=== PATIENT | female | born 1955 | race Caucasian/White ===

== ENCOUNTER 2021-01-20 02:12 | Emergency (ER) | payer BC, OTHER ==
[2021-01-20 02:26] VITALS: BP 152/90; PULSE 81
--- NOTE | 2021-01-20 03:05 | EDM.PDOC ---
ED HPI GENERAL MEDICAL PROBLEM - General Chief Complaint: Respiratory Problem Stated Complaint: COVID+/ SOB Time Seen by Provider: 01/20/21 02:24 Source of Information: Reports: Patient History Limitations: Reports: No Limitations - History of Present Illness INITIAL COMMENTS - FREE TEXT/NARRATIVE: Ms. Harrington is a pleasant 65-year-old woman who now presents the ED stating that she developed decreased energy, generalized body aches, including lower back pain, a slight nonproductive cough, nausea without emesis, and slight watery diarrhea 2 days ago, on , 01/18/2021. No recent fever. She then lost her sense of smell yesterday, 01/19/2021, prompting her to go get tested for the SARS-CoV-2 virus, which returned positive. The patient states that she was told at the [facility] that she should come to the ED to get an infusion of monoclonal antibodies. She states that when she woke this morning feeling dyspneic, she decided to come to the ED. She states that she feels better now. She is wondering whether or not she was simply anxious. No recent fever. Here in the ED, the patient's initial BP is found to be modestly elevated at 152/90, otherwise, she is hemodynamically stable, afebrile, saturating 100% on room air. She appears to be comfortable, in no acute distress. The patient reports that she has had dysuria for about a week. Otherwise, prior to , the patient denies having a recent fever, chills, sore throat, ear pain, nasal or sinus congestion, cough, dyspnea, chest pain, palpitations, nausea, vomiting, constipation, diarrhea, abdominal pain, recent weight gain or weight loss, recent bloody bowel movements or black bowel movements, recent joint aches, headaches, or rashes. The patient's PCP is Belinda Calero NP. She has not received a COVID vaccination. - Related Data Allergies Allergy/AdvReac Type Severity Reaction Status Date / Time No Known Allergies Allergy Verified 01/20/21 02:26 Home Meds: Home Meds Levothyroxine 75 mcg PO DAILY 12/16/13 [History] ramipriL [Altace] 10 mg PO DAILY 12/16/13 [History] Cholecalciferol (Vitamin D3) [Vitamin D3] 1,000 unit PO DAILY 01/24/14 [History] Natural Cholesterol Med 1 tab PO DAILY 01/24/14 [History] New Life Formula 1 tab PO DAILY 01/24/14 [History] Acetaminophen/oxyCODONE [Percocet 325-5 MG] 1 each PO Q4HR PRN #30 tab 01/25/14 [Rx] Ibuprofen 600 mg PO Q6HR PRN #30 tablet 01/25/14 [Rx] Metoprolol Succinate [Toprol Xl] 25 mg PO 01/20/21 [History] Omeprazole 20 mg PO 01/20/21 [History] amLODIPine [Norvasc] 01/20/21 [History] atorvaSTATin Calcium [Lipitor] 10 mg PO 01/20/21 [History] nitrofurantoin macrocrystaL [Nitrofurantoin] 1 cap PO Q12H #9 capsule 01/20/21 [Rx] Past Medical History Cardiovascular History: Reports: High Cholesterol, Hypertension Gastrointestinal History: Reports: Diverticulosis (diverticulitis), GERD Endocrine/Metabolic History: Reports: Hypothyroidism, Obesity/BMI 30+ - Past Surgical History HEENT Surgical History: Reports: Oral Surgery (dental extractions) GI Surgical History: Reports: Appendectomy, Cholecystectomy (around 2014), Hernia, Abdominal Female Surgical History: Reports: Hysterectomy (complete), Other (See Below) (Ovarian cystectomy x 2. Bladder suspension.) Oncologic Surgical History: Reports: Biopsy of Breast (right, x 2 -> benign) Social & Family History - Tobacco Use Tobacco Use Status *Q: Current Some Day Tobacco User Packs/Tins Daily Comment: Down from 04/03 ppd Tobacco Use Comment: Started smoking 1972 - Alcohol Use Alcohol Use History: Yes Alcohol Use Frequency: Socially - Recreational Drug Use Recreational Drug Use: No - Living Situation & Occupation Living situation: Reports: , Alone Occupation: Unemployed ED ROS GENERAL - Review of Systems Review Of Systems: Comprehensive ROS is negative, except as noted in HPI. ED EXAM, GENERAL - Physical Exam Exam: See Below Exam Limited By: No Limitations General Appearance: Alert, WD/WN, No Apparent Distress Eye Exam: Bilateral Eye: EOMI, Normal Inspection Ears: Normal External Exam, Hearing Grossly Normal Nose: Normal Inspection Throat/Mouth: Normal Inspection, Normal Lips, Normal Voice, No Airway Compromise Head: Atraumatic, Normocephalic Neck: Normal Inspection, Full Range of Motion Respiratory/Chest: No Respiratory Distress, Lungs Clear, Normal Breath Sounds, No Accessory Muscle Use. No: Decreased Breath Sounds, Crackles, Rhonchi, Wheezing, Stridor, Prolonged Expiration Cardiovascular: Normal Peripheral Pulses, Regular Rate, Rhythm, No Edema, No Gallop, No JVD, No Murmur, No Rub Peripheral Pulses: 3+: Radial (L), Radial (R) GI/Abdominal: Normal Bowel Sounds, Soft, Non-Tender, No Organomegaly, No Distention, No Abnormal Bruit, No Mass Back Exam: Normal Inspection, Full Range of Motion, NT Extremities: Normal Inspection, Normal Range of Motion, No Pedal Edema, Normal Capillary Refill Neurological: Alert, Oriented, Normal Cognition, No Motor/Sensory Deficits Psychiatric: Normal Affect Skin Exam: Warm, Dry, Intact, Normal Color, No Rash Course - Vital Signs Last Recorded V/S: Last Vital Signs Temp 36.1 C 01/20/21 02:23 Pulse 81 01/20/21 02:23 Resp 18 01/20/21 02:23 BP 152/90 H 01/20/21 02:23 Pulse Ox 100 01/20/21 02:23 - Orders/Labs/Meds Orders: Active Orders 24 hr Category Date Time Status Chest 1V Frontal [CR] Stat Exams 01/20/21 03:01 Taken UA W/MICROSCOPIC [URIN] Stat Lab 01/20/21 04:45 Results Labs: Laboratory Tests 01/20/21 01/20/21 01/20/21 Range/Units 03:30 03:30 04:45 WBC 6.44 (3.98-10.04) K/mm3 RBC 4.66 (3.98-5.22) M/mm3 Hgb 14.2 (11.2-15.7) gm/dl Hct 43.4 (34.1-44.9) % MCV 93.1 (79.4-94.8) fl MCH 30.5 (25.6-32.2) pg MCHC 32.7 (32.2-35.5) g/dl RDW Std Deviation 43.9 (36.4-46.3) fL Plt Count 162 L (182-369) K/mm3 MPV 10.9 (9.4-12.3) fl Neutrophils % (Manual) 67 H (40-60) % Band Neutrophils % 0 (0-10) % Lymphocytes % (Manual) 24 (20-40) % Atypical Lymphs % 0 % Monocytes % (Manual) 6 (2-10) % Eosinophils % (Manual) 3 (0.7-5.8) % Basophils % (Manual) 0 L (0.1-1.2) Platelet Estimate Adequate RBC Morph Comment Normal Sodium 139 (136-145) mEq/L Potassium 3.8 (3.5-5.1) mEq/L Chloride 103 (98-107) mEq/L Carbon Dioxide 28 (21-32) mEq/L Anion Gap 11.8 (5-15) BUN 15 (7-18) mg/dL Creatinine 0.8 (0.55-1.02) mg/dL Est Cr Clr Drug Dosing 56.19 mL/min Estimated GFR (MDRD) > 60 (>60) mL/min BUN/Creatinine Ratio 18.8 H (14-18) Glucose 119 H (70-99) mg/dL Calcium 8.3 L (8.5-10.1) mg/dL Total Bilirubin 0.2 (0.2-1.0) mg/dL AST 18 (15-37) U/L ALT 38 (14-59) U/L Alkaline Phosphatase 94 (46-116) U/L C-Reactive Protein 0.4 (<1.0) mg/dL Total Protein 6.7 (6.4-8.2) g/dl Albumin 3.4 (3.4-5.0) g/dl Globulin 3.3 gm/dL Albumin/Globulin Ratio 1.0 (1-2) Urine Color Light yellow (Yellow) Urine Appearance Slt cloudy H (Clear) Urine pH 7.0 (5.0-8.0) Ur Specific [place] 1.020 (1.005-1.030) Urine Protein Negative (Negative) Urine Glucose (UA) Negative (Negative) Urine Ketones Negative (Negative) Urine Occult Blood Trace-intact H (Negative) Urine Nitrite Negative (Negative) Urine Bilirubin Negative (Negative) Urine Urobilinogen 0.2 (0.2-1.0) Ur Leukocyte Esterase 1+ H (Negative) - Re-Assessments/Exams Free Text/Narrative Re-Assessment/Exam: 01/20/21 03:02 I explained to the patient that we have a limited quantity of monoclonal antibodies, therefore we need to limit those to patients that are most likely to do poorly with COVID-19. From my perspective, that is best determined by a CRP; if the patient's CRP is low, then she will likely do well with COVID-19, whereas if her CRP is elevated, while not necessarily due to COVID-19, she is more likely to do poorly, and would therefore derive more benefit from an infusion. I therefore recommended that we check some blood tests, including a CRP, along with a baseline portable chest x-ray, and, because of her report of dysuria, a urinalysis. The patient agreed. 01/20/21 03:49 Portable chest radiograph appears to be grossly normal. The cardiac silhouette is within normal limits. No pulmonary vascular congestion. No pleural effusions seen on this AP view. No focal infiltrate. No pneumothorax. Formal read per the Radiologist pending. 01/20/21 05:20 The patient's CBC is remarkable for thrombocytopenia of 162,000, and is otherwise unremarkable. Her CMP is remarkable for slight hyperglycemia of 119, and is otherwise unremarkable. Her CRP is within normal limits at 0.4. Her urinalysis is remarkable for slightly cloudy appearance, occult blood negative with 0-5 RBCs, 1+ leukocyte esterase with 20-30 WBCs, nitrate negative with few bacteria, and 0-5 squamous epithelial cells. Based on the above, I will order a urine culture and start the patient on nitrofurantoin. With a CRP of 0.4, the patient is not at high risk for the development of significant complications from COVID-19, therefore I do not believe she qualifies for an infusion of monoclonal antibodies. 01/20/21 05:29 Test results discussed with the patient. I will submit a prescription for a 5- day course of nitrofurantoin that the patient can chicken picker later today. She is to stay adequately hydrated and take OTC ibuprofen as needed for discomfort. She is to strictly isolate through 01/29/2021, at which time she should get retested. Departure - Departure Time of Disposition: 05:30 Disposition: Home, Self-Care 01 Condition: Good Clinical Impression: COVID-19, Cystitis - Discharge Information *PRESCRIPTION DRUG MONITORING PROGRAM REVIEWED*: Not Applicable *COPY OF PRESCRIPTION DRUG MONITORING REPORT IN PATIENT COLLINS: Not Applicable Referrals: Belinda Calero NP [Primary Care Provider] - Forms: ED Department Discharge Additional Instructions: You were seen in the emergency room for shortness of breath after testing positive for the SARS-CoV-2 virus on Friday. Work-up in the ER included numerous blood tests, a urinalysis, and a chest x- ray. Your blood work and chest x-ray were unremarkable, therefore you were found to not be a candidate for treatment with an infusion of monoclonal antibodies. Your urinalysis indicates that you have a urinary tract infection. You have been started on the antibiotic nitrofurantoin, and a prescription for nitrofurantoin has been sent to the [facility] located in the [employer] store. Take 1 tablet of nitrofurantoin every 12 hours, starting this evening, 01/20/2021, as prescribed. Finish the entire prescription unless told otherwise by your provider. Stay adequately hydrated. You may take [id number] ibuprofen as needed for discomfort. As discussed, we recommend that you not take any [id number] cough or cold remedies, as they have been shown to be of no benefit, but do have side effects, such as an upset stomach. We recommend that you contact the office of your PCP, Belinda Calero NP, on 01/22/2021, to check on your urine culture results, to make sure that you are on the correct antibiotics. As discussed, it is imperative that you remain strictly isolated through 01/29/2021. At that time, we recommend that you get retested for the SARS-CoV-2 virus. If you are still positive, do not break isolation until you test negative. If any other problems, please do not hesitate to return to the ER. Sepsis Event Note (ED) - Evaluation Sepsis Screening Result: No Definite Risk - Focused Exam Vital Signs: Vital Signs Temp Pulse Resp BP Pulse Ox 01/20/21 02:23 36.1 C 81 18 152/90 H 100 - My Orders Last 24 Hours: My Active Orders 01/20/21 03:01 Chest 1V Frontal [CR] Stat 01/20/21 04:45 UA W/MICROSCOPIC [URIN] Stat - Assessment/Plan Last 24 Hours: My Active Orders 01/20/21 03:01 Chest 1V Frontal [CR] Stat 01/20/21 04:45 UA W/MICROSCOPIC [URIN] Stat
[2021-01-20] MEDS ORDERED: Nitrofurantoin Monohydrate/Macrocrystalline 100 MG Cap PO STA (05:22)
--- NOTE | 2021-01-20 07:36 | CR ---
Chest: Portable view of the chest was obtained. Comparison: No prior chest imaging is available. Heart size and mediastinum are within normal limits. Minimal lobulation of the left medial hemidiaphragm is seen as an incidental note. Lungs are clear with no acute parenchymal change. No acute osseous abnormality is appreciated. Impression: 1. Nothing acute is seen on portable chest x-ray. Diagnostic code #1
== END 2021-01-20 05:56 | disposition home or self-care (01) ==
LOC: JD.ED 02:12
DX: U07.1 COVID-19 (principal); N30.90 Cystitis, unspecified without hematuria; E78.00 Pure hypercholesterolemia, unspecified; I10 Essential (primary) hypertension; E03.9 Hypothyroidism, unspecified; K21.9 Gastro-esophageal reflux disease without esophagitis; E66.9 Obesity, unspecified; Z68.30 Body mass index [BMI] 30.0-30.9, adult; Z79.899 Other long term (current) drug therapy; Z72.0 Tobacco use
CPT/HCPCS: 36415; 71045; 80053; 81001; 85007; 85027; 86140; 87086; 87088; 87186; 99285; A9270